=== PATIENT | male | born 1960 | race American Indian/Alaskan Native ===

== ENCOUNTER 2016-08-05 11:24 | Emergency (ER) | payer SELFPAY ==
[2016-08-05 11:39] LABS: Eosinophils % (Auto) 2.3 % (0.0-4.3); Hematocrit 36.2 % (35.5-45.6); Hemoglobin 11.9 gm/dl (11.8-15.2); Mean Corpuscular HGB Conc 33 % (32-34); Mean Corpuscular Volume 75 fl (84-94); Platelet Count 279 K/mm3 (140-440); Red Blood Count 4.83 M/mm3 (3.65-5.03); Red Cell Distribution Width 17.9 % (13.2-15.2); White Blood Count 8.6 K/mm3 (4.5-11.0)
[2016-08-05 11:44] LABS: Mean Corpuscular Hemoglobin 25 pg (28-32)
[2016-08-05] MEDS ORDERED: KEPPRA 1,000 MG/NS 0.75% 100ML 1,000 MG/100 ML BAG IV ONE ×2 (11:44→11:50)
--- NOTE | 2016-08-05 11:44 | Emergency Department Report ---
HPI - General Time Seen by Provider: 08/05/16 11:32 - HPI HPI: Room 2 The patient is a 56-year-old male presenting with chief complaint of altered mental status. Per EMS the patient's last known well time was 06:00 this morning when his gave him his blood pressure medication. EMS states the returned home at approximately 11:00 on the patient unresponsive in bed. EMS was called. EMS states upon their arrival and during transport the patient was nonverbal but would attempt to follow commands. EMS noted the patient will not move his right side. The patient will voluntarily move his left side and follow commands. Upon arrival to the ED the patient was unresponsive and did not have a gag reflex subsequently intubated using RSI prior to going to CT. Location: Central nervous system Duration: [see above] Quality: Unresponsive Severity: Severe Modifying factors: [see above] Context: [see above] Mode of transportation: [not driving] ED Past Medical Hx - Past Medical History Hx Hypertension: Yes Additional medical history: Pulmonary embolus - Surgical History Past Surgical History?: No - Family History Family history: no significant - Social History Smoking Status: Unknown if ever smoked - Medications Home Medications: Home Medications Medication Instructions Recorded Confirmed Last Taken Type Amlodipine Besylate [Norvasc] 10 mg PO DAILY 08/05/16 08/05/16 08/05/16 History Apixaban [Eliquis] 5 mg PO BID 08/05/16 08/05/16 08/05/16 History Carvedilol [Coreg] 12.5 mg PO BID 08/05/16 08/05/16 08/05/16 History ED Review of Systems ROS: Stated complaint: POSS STROKE Other details as noted in HPI Comment: Unobtainable due to pts medical conditions Constitutional: denies: chills, fever Eyes: denies: eye pain, eye discharge, vision change Physical Exam - Physical Exam Physical Exam: GENERAL: The patient is well-developed well-nourished []. [] HEENT: Normocephalic. Atraumatic. Extraocular motions are intact. Patient has moist mucous membranes. NECK: Supple. No meningitic signs are noted. There is no adenopathy noted. CHEST/LUNGS: Clear to auscultation. There is no respiratory distress noted. HEART/CARDIOVASCULAR: Regular. There is no tachycardia. There is no gallop rub or murmur. ABDOMEN: Abdomen is soft, nontender. Patient has normal bowel sounds. There is no abdominal distention. SKIN: There is no rash. There is no edema. There is no diaphoresis. NEURO: The patient is awake, alert, and oriented. The patient is cooperative. The patient has no focal neurologic deficits. The patient has normal speech and gait. MUSCULOSKELETAL: There is no tenderness or deformity. There is no limitation range of motion. There is no evidence of acute injury. ED Course - Consultations Consultation #1: 08/05/16 11:44 [place] transfer line called 08/05/16 12:[address] Mann (neurosurgery), Dr. Hancock (neuro pet handler)- will accept patient pending bed availability. Currently no beds available Consultation #2: 08/05/16 12:04 [place] transfer line called-case discussed. Awaiting callback 08/05/16 12:11 Case discussed with [place] neurosurgeon Dr. Parks-no beds available Consultation #3: 08/05/16 12:12 [facility] transfer line called 08/05/16 12:[address] Levy- no beds available currently. Will accept patient pending bed availability 08/05/16 12:30 [facility] transfer line called 08/05/16 12:35 [facility] does not have ICU beds. 08/05/16 12:36 [facility] called 08/05/16 12:46 Case discussed with [facility] transfer line-awaiting intensive his call back 08/05/16 13:24 [facility] called 08/05/16 13:27 on neurosurgical diversion 08/05/16 13:28 [place] transfer line called- canceled after receiving call back for [facility] stating the neurosurgeon and pet handler should be calling "shortly" 08/05/16 13:[address] [facility] neurosurgeon Dr. Becerra-will tentatively accept patient. Awaiting information from bed control 08/05/16 13:50 Case discussed with [facility] pet handler-will accept patient 08/05/16 13:51 Nursing arranging transport ED Medical Decision Making - Lab Data Result diagrams: 08/05/16 11:27 08/05/16 11:27 Laboratory Tests 08/05/16 08/05/16 08/05/16 11:27 11:27 11:27 WBC 8.6 RBC 4.83 Hgb 11.9 Hct 36.2 MCV 75 L MCH 25 L MCHC 33 RDW 17.9 H Plt Count 279 Lymph % (Auto) 17.7 [place] % (Auto) 5.5 Eos % (Auto) 2.3 Baso % (Auto) 1.0 Lymph # 1.5 [place] # 0.5 Eos # 0.2 Baso # 0.1 Seg Neutrophils % 73.5 H Seg Neutrophils # 6.3 PT 14.5 INR 1.14 H APTT 33.0 Thrombin Time Sodium 140 Potassium 3.6 Chloride 105.7 Carbon Dioxide 20 L Anion Gap 18 BUN 36 H Creatinine 2.6 H Estimated GFR 31 BUN/Creatinine Ratio 13.84 Glucose 194 H Calcium 7.9 L Troponin T 0.210 H* Triglycerides 148 Cholesterol 278 H LDL Cholesterol Direct 163 H HDL Cholesterol 86 H Cholesterol/HDL Ratio 3.23 08/05/16 11:27 WBC RBC Hgb Hct MCV MCH MCHC RDW Plt Count Lymph % (Auto) [place] % (Auto) Eos % (Auto) Baso % (Auto) Lymph # [place] # Eos # Baso # Seg Neutrophils % Seg Neutrophils # PT INR APTT Thrombin Time 17.7 Sodium Potassium Chloride Carbon Dioxide Anion Gap BUN Creatinine Estimated GFR BUN/Creatinine Ratio Glucose Calcium Troponin T Triglycerides Cholesterol LDL Cholesterol Direct HDL Cholesterol Cholesterol/HDL Ratio - EKG Data -: EKG Interpreted by Me EKG shows normal: sinus rhythm Rate: normal - EKG Data When compared to previous EKG there are: previous EKG unavailable - Radiology Data Radiology results: report reviewed (CT head), image reviewed (CT head, chest x- ray) interpreted by me: Chest x-ray- no focal infiltrates, no pneumothorax. ET tube in place CT head (read by radiologist)-left thalamic hemorrhage with intraventricular extension and mild hydrocephalus. - Differential Diagnosis ICH, CVA Critical Care Time: Yes Critical care time in (mins) excluding proc time.: 105 Critical care attestation.: If time is entered above; I have spent that time in minutes in the direct care of this critically ill patient, excluding procedure time. ED Disposition Clinical Impression: Intracranial hemorrhage, Hypertensive emergency, Renal insufficiency Disposition: DC/TX ANOTHER TYPE HEALTHCARE Is pt being admited?: No Does the pt Need Aspirin: No Condition: Serious Instructions: Hypertension (ED) Referrals: PRIMARY CARE, [Primary Care Provider] - 3-5 Days Time of Disposition: 13:52 (awaiting transport) Blank Doc - Documentation Documentation: The patient was intubated via orotracheal route using a 8.0 mm endotracheal tube. Rapid sequence induction was used utilizing lidocaine 100 mg IV, succinylcholine 100 mg IV, etomidate 20 mg IV. Positioning was confirmed using auscultation and CO2 detector. Post intubation chest xray was ordered and showed appropriate ET tube position.
[2016-08-05 11:49] LABS: BUN/Creatinine Ratio 13.84; Calcium 7.9 mg/dL (8.4-10.2); Chloride 105.7 mmol/L (98-107); INR 1.14 (0.87-1.13); Potassium 3.6 mmol/L (3.6-5.0)
--- NOTE | 2016-08-05 11:58 | Cat Scan Report ---
CT HEAD WITHOUT CONTRAST: HISTORY: CVA. No comparison. A left thalamic hemorrhage measures 3.4 x 2.5 cm in axial plane. There is intraventricular extension of hemorrhage with mild hydrocephalus. There is a ring of edema surrounding the left thalamic hemorrhage but no significant mass effect or midline shift. Mild chronic white matter changes and chronic lacunar infarct in the right basal ganglia are noted. The remainder of the brain parenchyma is within normal limits. The posterior fossa is unremarkable. The visualized sinuses and mastoid air cells are adequately aerated. The calvarium is intact the IMPRESSION: Left thalamic hemorrhage with intraventricular extension and mild hydrocephalus. These findings were discussed with Dr. Valles in the emergency department at 1148 hrs.
[2016-08-05] MEDS ORDERED: CARDENE DRIP 40 MG/200 ML 40 MG/200 ML BAG IV SCH (12:00)
[2016-08-05] MEDS ORDERED: MIDAZOLAM 100 MG in NACL 0.9% 80 ML IV SCH (12:00)
--- NOTE | 2016-08-05 12:17 | XRay Report ---
AP CHEST: HISTORY: Endotracheal tube placement No comparison. An endotracheal tube terminates 4 cm superior to the gerardo. There is good pulmonary inflation. Mild pulmonary venous congestion is suspected bilaterally. No pleural effusion, infiltrate or pneumothorax. Heart size is within normal limits. IMPRESSION: Adequate placement of the endotracheal tube. Mild pulmonary venous congestion.
[2016-08-05 13:13] LABS: ISTAT Base Excess -2; ISTAT HCO3 22.9; ISTAT PCO2 36.2 (35-45); ISTAT PH 7.409 (7.35-7.45); ISTAT PO2 393 (80-105); ISTAT SO2 100; ISTAT TCO2 24
[2016-08-05] MEDS ORDERED: WATER FOR INJ ONE (13:23)
[2016-08-05] MEDS ORDERED: KCENTRA IV ONE (14:00)
[2016-08-05] MEDS ORDERED: NACL 0.9% 500 ML 500 ML ONE (14:28)
[2016-08-05 14:47] VITALS: BP 175/111
[2016-08-05] MEDS ORDERED: NACL 0.9% 500 ML 500 ML IV SCH (15:00)
== END 2016-08-05 15:00 | disposition other institution (70) ==
LOC: ED 11:24
DX: I61.9 Nontraumatic intracerebral hemorrhage, unspecified (principal); I10 Essential (primary) hypertension; N28.9 Disorder of kidney and ureter, unspecified; Z86.711 Personal history of pulmonary embolism
CPT/HCPCS: 31500; 36415; 51702; 70450; 71010; 80048; 80061; 82803; 84484; 85025; 85610; 85670; 85730; 87205; 93005; 93010; 96365; 96375; 99291; 99292; J1953; J2250; J7040; J7195; 94002